=== PATIENT | male | born 1985 | race Caucasian/White ===

== ENCOUNTER 2018-02-28 09:13 | Inpatient (IN) | payer MEDICAID ==
[~2018-02-28] VITALS: Ht 177.8 cm; Wt 63.1 kg
[2018-02-28] MEDS ORDERED: SODIUM CHLORIDE FLUSH 10ML SYR IVF ONE (10:00)
[2018-02-28] MEDS ORDERED: SODIUM CHLORIDE 0.9% 1,000ML IVBOLUS ONE (10:00)
[2018-02-28 10:34] LABS: BASOPHILS # (AUTO) 0.02 x10^3/uL (0-0.1); BASOPHILS % (AUTO) 0 % (0-1); EOSINOPHILS # (AUTO) 0.02 x10^3/uL (0-0.4); EOSINOPHILS % (AUTO) 0 % (1-7); LYMPHOCYTES # (AUTO) 1.37 x10^3/uL (1-3.4); LYMPHOCYTES % (AUTO) 19 % (22-44); MD NO; MEAN CORPUSCULAR HEMOGLOBIN 29.3 pg (27.5-34.5); MEAN CORPUSCULAR HGB CONC 33.1 g/dL (33.2-36.2); MEAN CORPUSCULAR VOLUME 88.7 fL (81-97); MEAN PLATELET VOLUME 5.9 fL (7.4-10.4); MONOCYTES # (AUTO) 0.67 x10^3/uL (0.2-0.8); MONOCYTES % (AUTO) 9 % (2-9); NEUTROPHILS # (AUTO) 5.12 x10^3/uL (1.8-6.8); NEUTROPHILS % (AUTO) 71 % (42-75); PLATELET COUNT 351 x10^3/uL (130-400); RED BLOOD COUNT 4.84 x10^6/uL (4.38-5.82); RED CELL DISTRIBUTION WIDTH 14.3 % (9.4-14.8)
[2018-02-28 10:47] LABS: ALANINE AMINOTRANSFERASE 22 U/L (12-78); ALBUMIN 2.7 g/dL (3.4-5.0); ANION GAP 13 mmol/L (5-15); CALCIUM 8.5 mg/dL (8.5-10.1); CHLORIDE 105 mmol/L (98-107); CREATININE 0.58 mg/dL (0.7-1.3)
[2018-02-28 10:50] LABS: ALKALINE PHOSPHATASE 83 U/L (45-117); BILIRUBIN,TOTAL 0.6 mg/dL (0.2-1.0); TOTAL PROTEIN 6.5 g/dL (6.4-8.2)
[2018-02-28 11:33] LABS: MICROSCOPIC NOT IND
[2018-02-28 11:34] LABS: CULTURE INDICATED? NO
[2018-02-28] MEDS ORDERED: OMNIPAQUE 350 MG/ML, 100ML BOTTLE ONE (12:19)
[2018-02-28] MEDS ORDERED: POTASSIUM CHLORIDE 10 MEQ in LACTATED RINGERS 1,000 ML IV ONE (12:43)
[2018-02-28] MEDS ORDERED: ONDANSETRON 2MG/ML, 2ML IVPush PRN (14:00)
[2018-02-28] MEDS ORDERED: ACETAMINOPHEN 325 MG TABLET PO PRN (14:00)
[2018-02-28] MEDS ORDERED: hydrALAzine 20 MG/ML, 1ML IVPush PRN (14:00)
[2018-02-28] MEDS ORDERED: ENALAPRILAT 1.25 MG/ML, 2ML IVPush PRN (14:00)
[2018-02-28] MEDS ORDERED: POLYETHYLENE GLYCOL 17 GM PACKET PO PRN (14:00)
[2018-02-28] MEDS ORDERED: BISACODYL 10 MG SUPP PR PRN (14:00)
[2018-02-28] MEDS ORDERED: DOCUSATE 100 MG CAPSULE PO PRN (14:00)
[2018-02-28] MEDS ORDERED: HYDROcodone/APAP 5/325 TABLET PO PRN (14:00)
[2018-02-28 14:18] VITALS: BP 111/79
[2018-02-28] MEDS: D5%-LR+KCL 20MEQ 1,000 ML IV SCH (15:29)
[2018-02-28] MEDS: morphine SULFATE 10 MG/ML, 1ML IVPush PRN ×3 (15:30→21:22)
[2018-02-28] MEDS ORDERED: ONDANSETRON ODT 4 MG ONE (18:22)
[2018-02-28] MEDS: ONDANSETRON ODT 4 MG PO PRN (18:26)
[2018-02-28 19:33] VITALS: BP 103/71
[2018-02-28] MEDS: NICOTINE 14MG/24 HR PATCH.TD24 TD SCH (21:22)
[2018-03-01] MEDS: D5%-LR+KCL 20MEQ 1,000 ML IV SCH ×3 (00:34→23:14)
[2018-03-01] MEDS: morphine SULFATE 10 MG/ML, 1ML IVPush PRN ×7 (00:34→21:20)
[2018-03-01] MEDS: ONDANSETRON ODT 4 MG PO PRN ×3 (00:34→16:34)
[2018-03-01 01:08] VITALS: BP 96/60
[2018-03-01 05:20] LABS: BASOPHILS # (AUTO) 0.02 x10^3/uL (0-0.1); BASOPHILS % (AUTO) 0 % (0-1); EOSINOPHILS # (AUTO) 0.07 x10^3/uL (0-0.4); EOSINOPHILS % (AUTO) 1 % (1-7); LYMPHOCYTES # (AUTO) 1.74 x10^3/uL (1-3.4); LYMPHOCYTES % (AUTO) 24 % (22-44); MD NO; MEAN CORPUSCULAR HEMOGLOBIN 30.2 pg (27.5-34.5); MEAN CORPUSCULAR HGB CONC 33.6 g/dL (33.2-36.2); MEAN CORPUSCULAR VOLUME 89.8 fL (81-97); MEAN PLATELET VOLUME 5.8 fL (7.4-10.4); MONOCYTES # (AUTO) 0.66 x10^3/uL (0.2-0.8); MONOCYTES % (AUTO) 9 % (2-9); NEUTROPHILS # (AUTO) 4.66 x10^3/uL (1.8-6.8); NEUTROPHILS % (AUTO) 65 % (42-75); PLATELET COUNT 355 x10^3/uL (130-400); RED BLOOD COUNT 4.23 x10^6/uL (4.38-5.82); RED CELL DISTRIBUTION WIDTH 14.3 % (9.4-14.8)
[2018-03-01 05:42] LABS: CHLORIDE 109 mmol/L (98-107)
[2018-03-01 05:51] LABS: ALANINE AMINOTRANSFERASE 18 U/L (12-78); ALBUMIN 2.2 g/dL (3.4-5.0); ALKALINE PHOSPHATASE 70 U/L (45-117); ANION GAP 7 mmol/L (5-15); BILIRUBIN,TOTAL 0.5 mg/dL (0.2-1.0); CALCIUM 8.1 mg/dL (8.5-10.1); CREATININE 0.55 mg/dL (0.7-1.3); TOTAL PROTEIN 5.3 g/dL (6.4-8.2)
[2018-03-01 07:11] VITALS: BP 94/59
[2018-03-01 13:55] VITALS: BP 98/74
[2018-03-01] MEDS ORDERED: OMNIPAQUE 350 MG/ML, 150 ML BOTTLE ONE (14:41)
[2018-03-01 18:48] VITALS: BP 99/67
[2018-03-01] MEDS: NICOTINE 14MG/24 HR PATCH.TD24 TD SCH (21:21)
[2018-03-02] MEDS: morphine SULFATE 10 MG/ML, 1ML IVPush PRN ×8 (00:13→22:29)
[2018-03-02 03:09] VITALS: BP 98/66
[2018-03-02] MEDS: D5%-LR+KCL 20MEQ 1,000 ML IV SCH ×3 (06:41→23:26)
[2018-03-02 07:08] VITALS: BP 89/66
[2018-03-02] MEDS: ONDANSETRON ODT 4 MG PO PRN (12:54)
[2018-03-02 13:40] VITALS: BP 97/64
[2018-03-02] MEDS ORDERED: D5%-LR+KCL 20MEQ 1,000 ML IV SCH ×2 (14:00)
[2018-03-02 19:22] VITALS: BP 97/61
[2018-03-02] MEDS: NICOTINE 14MG/24 HR PATCH.TD24 TD SCH (21:00)
[2018-03-03] MEDS: morphine SULFATE 10 MG/ML, 1ML IVPush PRN ×8 (01:31→23:06)
[2018-03-03 02:15] VITALS: BP 98/50
[2018-03-03 06:04] LABS: BASOPHILS # (AUTO) 0.02 x10^3/uL (0-0.1); BASOPHILS % (AUTO) 0 % (0-1); EOSINOPHILS % (AUTO) 1 % (1-7); LYMPHOCYTES # (AUTO) 2.23 x10^3/uL (1-3.4); LYMPHOCYTES % (AUTO) 29 % (22-44); MD NO; MEAN CORPUSCULAR HEMOGLOBIN 29.5 pg (27.5-34.5); MEAN CORPUSCULAR HGB CONC 32.8 g/dL (33.2-36.2); MEAN CORPUSCULAR VOLUME 89.9 fL (81-97); MONOCYTES # (AUTO) 0.81 x10^3/uL (0.2-0.8); MONOCYTES % (AUTO) 10 % (2-9); NEUTROPHILS # (AUTO) 4.64 x10^3/uL (1.8-6.8); NEUTROPHILS % (AUTO) 60 % (42-75); PLATELET COUNT 336 x10^3/uL (130-400); RED BLOOD COUNT 4.32 x10^6/uL (4.38-5.82); RED CELL DISTRIBUTION WIDTH 14.7 % (9.4-14.8)
[2018-03-03 06:10] LABS: ALBUMIN 2.3 g/dL (3.4-5.0); ANION GAP 6 mmol/L (5-15); CALCIUM 7.9 mg/dL (8.5-10.1); CHLORIDE 110 mmol/L (98-107)
[2018-03-03 06:14] LABS: ALANINE AMINOTRANSFERASE 24 U/L (12-78); ALKALINE PHOSPHATASE 77 U/L (45-117); BILIRUBIN,TOTAL 0.6 mg/dL (0.2-1.0); CREATININE 0.63 mg/dL (0.7-1.3); TOTAL PROTEIN 5.5 g/dL (6.4-8.2)
[2018-03-03 08:00] VITALS: BP 85/53
[2018-03-03] MEDS ORDERED: BENZOCAINE 20% SPRAY 0.5ML TP ONE ×2 (08:00→09:00)
[2018-03-03] MEDS ORDERED: LORazepam 2 MG/ML, 1ML IV PRN (08:00)
[2018-03-03] MEDS: D5%-LR+KCL 20MEQ 1,000 ML IV SCH ×3 (08:20→17:00)
[2018-03-03] MEDS: NICOTINE 14MG/24 HR PATCH.TD24 TD SCH (08:28)
[2018-03-03] MEDS ORDERED: TPN PER PHARMACY MC SCH (09:00)
[2018-03-03] MEDS ORDERED: FILTER, DISP 1.2 MICRON FOR TPN/PVN IV PRN (09:00)
[2018-03-03] MEDS: ONDANSETRON ODT 4 MG PO PRN ×2 (11:30→20:01)
[2018-03-03 13:11] VITALS: BP 100/67
[2018-03-03] MEDS ORDERED: LIDOCAINE-MPF 1%, 5ML ONE (13:30)
[2018-03-03] MEDS: D5%-LACTATED RINGERS 1,000 ML IV SCH (16:46)
[2018-03-03] MEDS ORDERED: DEXTROSE 50%, 50ML SYRINGE IVPush PRN (17:00)
[2018-03-03] MEDS ORDERED: FAT EMULSIONS IV SCH (17:00)
[2018-03-03] MEDS ORDERED: DEXTROSE 70% IV SCH (17:00)
[2018-03-03] MEDS ORDERED: AMINO ACID 10% IV SCH (17:00)
[2018-03-03] MEDS ORDERED: [UNRECOGNIZED DRUG - OTHER] IV SCH (17:00)
[2018-03-03] MEDS ORDERED: DEXTROSE 10% 500 ML IV PRN (17:00)
[2018-03-03 19:34] VITALS: BP 106/70
[2018-03-03] MEDS: INSULIN REGULAR LOW DOSE Q6H X 48HRS SQ-INSULIN SCH (21:58)
[2018-03-04] MEDS: morphine SULFATE 10 MG/ML, 1ML IVPush PRN ×5 (02:37→17:11)
[2018-03-04] MEDS: ONDANSETRON ODT 4 MG PO PRN ×2 (02:37→09:39)
[2018-03-04 02:44] VITALS: BP 116/54
[2018-03-04] MEDS: INSULIN REGULAR LOW DOSE Q6H X 48HRS SQ-INSULIN SCH ×4 (03:16→22:30)
[2018-03-04] MEDS: D5%-LACTATED RINGERS 1,000 ML IV SCH ×2 (03:20→15:59)
[2018-03-04 03:27] LABS: BASOPHILS # (AUTO) 0.02 x10^3/uL (0-0.1); BASOPHILS % (AUTO) 0 % (0-1); EOSINOPHILS # (AUTO) 0.04 x10^3/uL (0-0.4); EOSINOPHILS % (AUTO) 0 % (1-7); LYMPHOCYTES # (AUTO) 1.23 x10^3/uL (1-3.4); LYMPHOCYTES % (AUTO) 10 % (22-44); MD NO; MEAN CORPUSCULAR HEMOGLOBIN 29.8 pg (27.5-34.5); MEAN CORPUSCULAR HGB CONC 32.7 g/dL (33.2-36.2); MEAN CORPUSCULAR VOLUME 91.2 fL (81-97); MONOCYTES # (AUTO) 0.08 x10^3/uL (0.2-0.8); MONOCYTES % (AUTO) 1 % (2-9); NEUTROPHILS % (AUTO) 89 % (42-75); PLATELET COUNT 361 x10^3/uL (130-400); RED CELL DISTRIBUTION WIDTH 14.6 % (9.4-14.8)
[2018-03-04 03:39] LABS: ANION GAP 6 mmol/L (5-15); CALCIUM 8.5 mg/dL (8.5-10.1); CHLORIDE 108 mmol/L (98-107); CREATININE 0.75 mg/dL (0.7-1.3); TRIGLYCERIDES 95 mg/dL (50-200)
[2018-03-04 03:43] LABS: PREALBUMIN 10.2 mg/dL (20.0-40.0)
[2018-03-04 07:05] VITALS: BP 104/74
[2018-03-04 15:22] VITALS: BP 104/75
[2018-03-04] MEDS ORDERED: FAT EMULSIONS IV SCH (17:00)
[2018-03-04] MEDS ORDERED: DEXTROSE 70% IV SCH (17:00)
[2018-03-04] MEDS ORDERED: [UNRECOGNIZED DRUG - OTHER] IV SCH (17:00)
[2018-03-04] MEDS ORDERED: FILTER, DISP 1.2 MICRON FOR TPN/PVN IV PRN (17:00)
[2018-03-04] MEDS ORDERED: AMINO ACID 10% IV SCH (17:00)
[2018-03-04] MEDS ORDERED: FENTANYL PF 100 MCG/2ML ONE ×2 (18:12→21:02)
[2018-03-04] MEDS ORDERED: MIDAZOLAM 1 MG/ML, 2ML ONE (18:12)
[2018-03-04] MEDS ORDERED: SUCCINYLCHOLINE 20 MG/ML, 10ML ONE (18:40)
[2018-03-04] MEDS ORDERED: CEFOTETAN 1 GM ONE (18:40)
[2018-03-04] MEDS ORDERED: PROPOFOL 10 MG/ML, 20ML ONE (18:40)
[2018-03-04] MEDS ORDERED: ROCURONIUM 10 MG/ML,10ML ONE (18:40)
[2018-03-04] MEDS ORDERED: DEXAMETHASONE 4 MG/ML, 1ML ONE (18:40)
[2018-03-04] MEDS ORDERED: ACETAMINOPHEN 325 MG TABLET PO PRN (20:00)
[2018-03-04] MEDS ORDERED: hydrALAzine 20 MG/ML, 1ML IV PRN (20:00)
[2018-03-04] MEDS ORDERED: ONDANSETRON 2MG/ML, 2ML IVPush PRN (20:00)
[2018-03-04] MEDS ORDERED: OXYcodone 5 MG/5 ML ORAL.SOL UDC PO PRN (20:00)
[2018-03-04] MEDS ORDERED: METOCLOPRAMIDE 5 MG/ML, 2ML IV PRN (20:00)
[2018-03-04] MEDS ORDERED: LABETALOL 5MG/ML, 20ML IV PRN (20:00)
[2018-03-04] MEDS ORDERED: HYDROmorphone 2 MG/ML, 1ML ONE ×2 (20:53→21:41)
[2018-03-04] MEDS: HYDROmorphone 1 MG/ML, 1ML IV PRN ×8 (20:56→22:21)
[2018-03-04] MEDS: NICOTINE 14MG/24 HR PATCH.TD24 TD SCH (21:00)
[2018-03-04] MEDS: FENTANYL PF 100 MCG/2ML IV PRN ×2 (21:04→21:28)
[2018-03-04] MEDS ORDERED: LORazepam 2 MG/ML, 1ML ONE (22:03)
[2018-03-04] MEDS ORDERED: PROMETHAZINE 25 MG/ML, 1ML ONE (22:11)
[2018-03-04] MEDS ORDERED: PROMETHAZINE 25 MG/ML, 1ML IV PRN (22:30)
[2018-03-04] MEDS ORDERED: PROMETHAZINE 25 MG SUPP PR PRN (22:30)
[2018-03-04] MEDS ORDERED: INSULIN SINGLE DOSE, ER SQ-INSULIN ONE (22:32)
[2018-03-05] VITALS (7 sets, daily range): BP systolic 90–121; BP diastolic 60–86
[2018-03-05] MEDS: PIPERACILLIN/TAZO/PMX 3.375GM 50 ML IV SCH ×4 (00:39→19:58)
[2018-03-05] MEDS: HYDROmorphone 1 MG/ML, 1ML IV PRN ×5 (00:39→17:54)
[2018-03-05] MEDS ORDERED: ONDANSETRON ODT 4 MG PO PRN (01:00)
[2018-03-05] MEDS: INSULIN REGULAR LOW DOSE Q6H X 48HRS SQ-INSULIN SCH ×2 (03:00→10:11)
[2018-03-05] MEDS: D5%-LACTATED RINGERS 1,000 ML IV SCH (03:45)
[2018-03-05 05:37] LABS: MEAN CORPUSCULAR HEMOGLOBIN 29.7 pg (27.5-34.5); MEAN CORPUSCULAR VOLUME 89.9 fL (81-97); MEAN PLATELET VOLUME 6.2 fL (7.4-10.4); PLATELET COUNT 260 x10^3/uL (130-400); RED BLOOD COUNT 4.81 x10^6/uL (4.38-5.82); RED CELL DISTRIBUTION WIDTH 14.6 % (9.4-14.8)
[2018-03-05 06:01] LABS: MD YES
[2018-03-05 06:04] LABS: BAND#(MANUAL) 2.87 x10^3/uL; BANDS%(MANUAL) 33 % (0-7); LYMPH#(MANUAL) 1.31 x10^3/uL (1-3.4); LYMPHS% (MANUAL) 15 % (22-44); MONOS#(MANUAL) 0.17 x10^3/uL (0.3-2.7); MONOS% (MANUAL) 2 % (2-9); SEG#(MANUAL) 4.35 x10^3/uL (1.8-6.8); SEGS% (MANUAL) 50 % (42-75)
[2018-03-05 06:07] LABS: <PLATELET ESTIMATE> ADEQUATE; <RBC MORPHOLOGY> NORMAL; SMALL PLATELETS 1+
[2018-03-05 08:27] LABS: TROPONIN I < 0.015 ng/mL (0.000-0.045)
[2018-03-05] MEDS: HEPARIN 5,000 UNITS/ML, 1ML SQ SCH ×2 (10:03→17:54)
[2018-03-05 10:07] LABS: ALANINE AMINOTRANSFERASE 21 U/L (12-78); ALBUMIN 2.1 g/dL (3.4-5.0); ANION GAP 6 mmol/L (5-15); CALCIUM 7.6 mg/dL (8.5-10.1); CHLORIDE 107 mmol/L (98-107); CREATININE 0.68 mg/dL (0.7-1.3)
[2018-03-05 10:09] LABS: ALKALINE PHOSPHATASE 77 U/L (45-117); BILIRUBIN,TOTAL 0.7 mg/dL (0.2-1.0); TOTAL PROTEIN 5.3 g/dL (6.4-8.2)
[2018-03-05] MEDS ORDERED: HYDROmorphone 2 MG/ML, 1ML ONE ×2 (11:04→17:48)
[2018-03-05 13:15] LABS: TROPONIN I < 0.015 ng/mL (0.000-0.045)
[2018-03-05] MEDS: morphine SULFATE 10 MG/ML, 1ML IVPush PRN (14:58)
[2018-03-05] MEDS: INSULIN REGULAR, HUMAN 100 UNITS/ML, 3ML HIGH DOSE SS SQ-INSULIN SCH ×2 (16:00→21:18)
[2018-03-05] MEDS ORDERED: [UNRECOGNIZED DRUG - OTHER] IV SCH (17:00)
[2018-03-05] MEDS ORDERED: AMINO ACID 10% IV SCH (17:00)
[2018-03-05] MEDS ORDERED: FILTER, DISP 1.2 MICRON FOR TPN/PVN IV PRN (17:00)
[2018-03-05] MEDS ORDERED: DEXTROSE 70% IV SCH (17:00)
[2018-03-05] MEDS ORDERED: SODIUM CHLORIDE 0.9% 1,000 ML IV SCH (17:00)
[2018-03-05] MEDS ORDERED: FAT EMULSIONS IV SCH (17:00)
[2018-03-05] MEDS: SODIUM CHLORIDE 0.9% 1,000 ML IV SCH (17:54)
[2018-03-05] MEDS: NICOTINE 14MG/24 HR PATCH.TD24 TD SCH (19:59)
[2018-03-05] MEDS: HYDROmorphone 2 MG/ML, 1ML IV PRN (21:15)
[2018-03-06 01:11] VITALS: BP 107/68
[2018-03-06] MEDS: HYDROmorphone 2 MG/ML, 1ML IV PRN ×4 (01:49→22:21)
[2018-03-06] MEDS: HEPARIN 5,000 UNITS/ML, 1ML SQ SCH ×3 (01:49→19:26)
[2018-03-06] MEDS: PIPERACILLIN/TAZO/PMX 3.375GM 50 ML IV SCH ×4 (01:49→22:11)
[2018-03-06] MEDS: INSULIN REGULAR, HUMAN 100 UNITS/ML, 3ML HIGH DOSE SS SQ-INSULIN SCH (04:00)
[2018-03-06] MEDS: SODIUM CHLORIDE 0.9% 1,000 ML IV SCH ×3 (05:04→22:21)
[2018-03-06 05:41] LABS: MEAN CORPUSCULAR HEMOGLOBIN 29.5 pg (27.5-34.5); MEAN CORPUSCULAR HGB CONC 32.5 g/dL (33.2-36.2); MEAN CORPUSCULAR VOLUME 90.8 fL (81-97); PLATELET COUNT 172 x10^3/uL (130-400); RED BLOOD COUNT 3.83 x10^6/uL (4.38-5.82); RED CELL DISTRIBUTION WIDTH 14.1 % (9.4-14.8)
[2018-03-06 05:49] LABS: CHLORIDE 106 mmol/L (98-107)
[2018-03-06 05:59] LABS: ALANINE AMINOTRANSFERASE 16 U/L (12-78); ALBUMIN 1.8 g/dL (3.4-5.0); ALKALINE PHOSPHATASE 76 U/L (45-117); ANION GAP 4 mmol/L (5-15); BILIRUBIN,TOTAL 0.8 mg/dL (0.2-1.0); CALCIUM 7.8 mg/dL (8.5-10.1); CREATININE 0.58 mg/dL (0.7-1.3); TOTAL PROTEIN 4.9 g/dL (6.4-8.2)
[2018-03-06 06:35] LABS: MD YES
[2018-03-06 06:37] LABS: BAND#(MANUAL) 0.98 x10^3/uL; BANDS%(MANUAL) 8 % (0-7); LYMPH#(MANUAL) 2.07 x10^3/uL (1-3.4); LYMPHS% (MANUAL) 17 % (22-44); MONOS#(MANUAL) 0.12 x10^3/uL (0.3-2.7); MONOS% (MANUAL) 1 % (2-9); SEG#(MANUAL) 9.03 x10^3/uL (1.8-6.8); SEGS% (MANUAL) 74 % (42-75)
[2018-03-06 06:38] LABS: <PLATELET ESTIMATE> ADEQUATE; <RBC MORPHOLOGY> NORMAL
[2018-03-06 06:39] LABS: <PLT MORPHOLOGY> NORMAL PLT MORPH
[2018-03-06 06:59] LABS: BASOPHILS # (AUTO) 0.01 x10^3/uL (0-0.1); BASOPHILS % (AUTO) 0 % (0-1); EOSINOPHILS # (AUTO) 0.05 x10^3/uL (0-0.4); EOSINOPHILS % (AUTO) 0 % (1-7); LYMPHOCYTES # (AUTO) 1.06 x10^3/uL (1-3.4); LYMPHOCYTES % (AUTO) 9 % (22-44); MONOCYTES % (AUTO) 3 % (2-9); NEUTROPHILS # (AUTO) 10.69 x10^3/uL (1.8-6.8); NEUTROPHILS % (AUTO) 88 % (42-75)
[2018-03-06 08:30] VITALS: BP 101/66
[2018-03-06] MEDS ORDERED: INSULIN REGULAR LOW DOSE QDAY SQ-INSULIN SCH (09:00)
[2018-03-06 14:14] VITALS: BP 101/63
[2018-03-06] MEDS ORDERED: DEXTROSE 70% IV SCH (17:00)
[2018-03-06] MEDS ORDERED: AMINO ACID 10% IV SCH (17:00)
[2018-03-06] MEDS ORDERED: FAT EMULSIONS IV SCH (17:00)
[2018-03-06] MEDS ORDERED: FILTER, DISP 1.2 MICRON FOR TPN/PVN IV PRN (17:00)
[2018-03-06] MEDS ORDERED: [UNRECOGNIZED DRUG - OTHER] IV SCH (17:00)
[2018-03-06 20:02] VITALS: BP 100/64
[2018-03-06] MEDS: NICOTINE 14MG/24 HR PATCH.TD24 TD SCH (20:13)
[2018-03-07] MEDS: HYDROmorphone 2 MG/ML, 1ML IV PRN ×6 (03:29→21:56)
[2018-03-07] MEDS: PIPERACILLIN/TAZO/PMX 3.375GM 50 ML IV SCH ×4 (03:29→21:56)
[2018-03-07] MEDS: HEPARIN 5,000 UNITS/ML, 1ML SQ SCH ×3 (03:29→19:57)
[2018-03-07 03:31] VITALS: BP 107/67
[2018-03-07 05:16] LABS: ALBUMIN 1.6 g/dL (3.4-5.0); ANION GAP 5 mmol/L (5-15); CALCIUM 8.2 mg/dL (8.5-10.1); CHLORIDE 106 mmol/L (98-107)
[2018-03-07 05:20] LABS: ALANINE AMINOTRANSFERASE 14 U/L (12-78); ALKALINE PHOSPHATASE 83 U/L (45-117); BILIRUBIN,TOTAL 0.9 mg/dL (0.2-1.0); CREATININE 0.55 mg/dL (0.7-1.3); TOTAL PROTEIN 5.3 g/dL (6.4-8.2)
[2018-03-07 05:22] LABS: BASOPHILS # (AUTO) 0.01 x10^3/uL (0-0.1); BASOPHILS % (AUTO) 0 % (0-1); EOSINOPHILS # (AUTO) 0.06 x10^3/uL (0-0.4); EOSINOPHILS % (AUTO) 1 % (1-7); LYMPHOCYTES # (AUTO) 0.62 x10^3/uL (1-3.4); LYMPHOCYTES % (AUTO) 7 % (22-44); MD NO; MEAN CORPUSCULAR HGB CONC 32.9 g/dL (33.2-36.2); MEAN CORPUSCULAR VOLUME 91.2 fL (81-97); MEAN PLATELET VOLUME 6.3 fL (7.4-10.4); MONOCYTES % (AUTO) 2 % (2-9); NEUTROPHILS # (AUTO) 8.45 x10^3/uL (1.8-6.8); NEUTROPHILS % (AUTO) 90 % (42-75); PLATELET COUNT 188 x10^3/uL (130-400); RED BLOOD COUNT 3.45 x10^6/uL (4.38-5.82); RED CELL DISTRIBUTION WIDTH 14.7 % (9.4-14.8)
[2018-03-07 05:25] LABS: HEMOGLOBIN A1C 4.7 % (4.2-6.3)
[2018-03-07] MEDS: INSULIN REGULAR, HUMAN 100 UNITS/ML, 3ML HIGH DOSE SS SQ-INSULIN SCH (08:02)
[2018-03-07 08:30] VITALS: BP 132/78
[2018-03-07] MEDS: SODIUM CHLORIDE 0.9% 1,000 ML IV SCH ×2 (11:25→19:46)
[2018-03-07 14:30] VITALS: BP 102/60
[2018-03-07] MEDS ORDERED: [UNRECOGNIZED DRUG - OTHER] IV SCH (17:00)
[2018-03-07] MEDS ORDERED: DEXTROSE 70% IV SCH (17:00)
[2018-03-07] MEDS ORDERED: FAT EMULSIONS IV SCH (17:00)
[2018-03-07] MEDS ORDERED: AMINO ACID 10% IV SCH (17:00)
[2018-03-07] MEDS: NICOTINE 14MG/24 HR PATCH.TD24 TD SCH (19:14)
[2018-03-07] MEDS: FILTER, DISP 1.2 MICRON FOR TPN/PVN IV PRN (19:50)
[2018-03-07 19:58] VITALS: BP 100/65
[2018-03-08] MEDS: HYDROmorphone 2 MG/ML, 1ML IV PRN ×10 (02:53→22:16)
[2018-03-08 02:54] VITALS: BP 100/63
[2018-03-08] MEDS: PIPERACILLIN/TAZO/PMX 3.375GM 50 ML IV SCH ×3 (04:07→17:30)
[2018-03-08] MEDS: HEPARIN 5,000 UNITS/ML, 1ML SQ SCH ×3 (04:07→20:21)
[2018-03-08] MEDS: SODIUM CHLORIDE 0.9% 1,000 ML IV SCH ×2 (04:08→13:00)
[2018-03-08 05:27] LABS: BASOPHILS # (AUTO) 0.04 x10^3/uL (0-0.1); BASOPHILS % (AUTO) 0 % (0-1); EOSINOPHILS # (AUTO) 0.06 x10^3/uL (0-0.4); EOSINOPHILS % (AUTO) 1 % (1-7); LYMPHOCYTES % (AUTO) 8 % (22-44); MD NO; MEAN CORPUSCULAR HEMOGLOBIN 29.9 pg (27.5-34.5); MEAN CORPUSCULAR HGB CONC 33.2 g/dL (33.2-36.2); MEAN CORPUSCULAR VOLUME 90.2 fL (81-97); MEAN PLATELET VOLUME 6.4 fL (7.4-10.4); MONOCYTES # (AUTO) 0.33 x10^3/uL (0.2-0.8); MONOCYTES % (AUTO) 4 % (2-9); NEUTROPHILS # (AUTO) 8.04 x10^3/uL (1.8-6.8); NEUTROPHILS % (AUTO) 88 % (42-75); PLATELET COUNT 201 x10^3/uL (130-400); RED BLOOD COUNT 3.19 x10^6/uL (4.38-5.82); RED CELL DISTRIBUTION WIDTH 14.3 % (9.4-14.8)
[2018-03-08 05:34] LABS: CHLORIDE 108 mmol/L (98-107)
[2018-03-08 05:49] LABS: ALANINE AMINOTRANSFERASE 15 U/L (12-78); ALBUMIN 1.6 g/dL (3.4-5.0); ALKALINE PHOSPHATASE 83 U/L (45-117); ANION GAP 5 mmol/L (5-15); BILIRUBIN,TOTAL 0.6 mg/dL (0.2-1.0); CALCIUM 7.8 mg/dL (8.5-10.1); CREATININE 0.39 mg/dL (0.7-1.3); TOTAL PROTEIN 5.4 g/dL (6.4-8.2)
[2018-03-08] MEDS: INSULIN REGULAR, HUMAN 100 UNITS/ML, 3ML HIGH DOSE SS SQ-INSULIN SCH (07:40)
[2018-03-08 09:28] VITALS: BP 99/63
[2018-03-08 14:18] VITALS: BP 103/62
[2018-03-08] MEDS: FILTER, DISP 1.2 MICRON FOR TPN/PVN IV PRN (17:00)
[2018-03-08] MEDS ORDERED: [UNRECOGNIZED DRUG - OTHER] IV SCH (17:00)
[2018-03-08] MEDS ORDERED: DEXTROSE 70% IV SCH (17:00)
[2018-03-08] MEDS ORDERED: FAT EMULSIONS IV SCH (17:00)
[2018-03-08] MEDS ORDERED: AMINO ACID 10% IV SCH (17:00)
[2018-03-08] MEDS: NICOTINE 14MG/24 HR PATCH.TD24 TD SCH (20:22)
[2018-03-08 20:28] VITALS: BP 104/65
[2018-03-09] MEDS: PIPERACILLIN/TAZO/PMX 3.375GM 50 ML IV SCH ×4 (00:07→19:02)
[2018-03-09] MEDS: SODIUM CHLORIDE 0.9% 1,000 ML IV SCH ×2 (00:07→07:20)
[2018-03-09] MEDS: HYDROmorphone 2 MG/ML, 1ML IV PRN ×10 (00:17→22:50)
[2018-03-09 00:40] VITALS: BP 108/70
[2018-03-09] MEDS: HEPARIN 5,000 UNITS/ML, 1ML SQ SCH ×3 (04:30→20:21)
[2018-03-09 05:25] LABS: CHLORIDE 105 mmol/L (98-107)
[2018-03-09 05:40] LABS: ALANINE AMINOTRANSFERASE 16 U/L (12-78); ALBUMIN 1.5 g/dL (3.4-5.0); ALKALINE PHOSPHATASE 84 U/L (45-117); ANION GAP 6 mmol/L (5-15); BILIRUBIN,TOTAL 0.7 mg/dL (0.2-1.0); CALCIUM 8.1 mg/dL (8.5-10.1); CREATININE 0.37 mg/dL (0.7-1.3); TOTAL PROTEIN 5.4 g/dL (6.4-8.2)
[2018-03-09 05:48] LABS: BASOPHILS # (AUTO) 0.02 x10^3/uL (0-0.1); BASOPHILS % (AUTO) 0 % (0-1); EOSINOPHILS # (AUTO) 0.08 x10^3/uL (0-0.4); EOSINOPHILS % (AUTO) 1 % (1-7); LYMPHOCYTES # (AUTO) 1.09 x10^3/uL (1-3.4); LYMPHOCYTES % (AUTO) 14 % (22-44); MD NO; MEAN CORPUSCULAR HEMOGLOBIN 30.1 pg (27.5-34.5); MEAN CORPUSCULAR HGB CONC 33.4 g/dL (33.2-36.2); MEAN CORPUSCULAR VOLUME 90.3 fL (81-97); MEAN PLATELET VOLUME 6.5 fL (7.4-10.4); MONOCYTES % (AUTO) 8 % (2-9); NEUTROPHILS # (AUTO) 5.89 x10^3/uL (1.8-6.8); NEUTROPHILS % (AUTO) 77 % (42-75); PLATELET COUNT 209 x10^3/uL (130-400); RED BLOOD COUNT 3.04 x10^6/uL (4.38-5.82); RED CELL DISTRIBUTION WIDTH 14.3 % (9.4-14.8)
[2018-03-09 07:20] VITALS: BP 98/67
[2018-03-09] MEDS: INSULIN REGULAR, HUMAN 100 UNITS/ML, 3ML HIGH DOSE SS SQ-INSULIN SCH (09:00)
[2018-03-09 12:31] VITALS: BP 136/97
[2018-03-09] MEDS: NICOTINE 14MG/24 HR PATCH.TD24 TD SCH (13:03)
[2018-03-09] MEDS ORDERED: [UNRECOGNIZED DRUG - OTHER] IV SCH (17:00)
[2018-03-09] MEDS ORDERED: DEXTROSE 70% IV SCH (17:00)
[2018-03-09] MEDS ORDERED: AMINO ACID 10% IV SCH (17:00)
[2018-03-09] MEDS ORDERED: FAT EMULSIONS IV SCH (17:00)
[2018-03-09] MEDS: FILTER, DISP 1.2 MICRON FOR TPN/PVN IV PRN (17:34)
[2018-03-09 20:00] VITALS: BP 92/61
[2018-03-10] MEDS: PIPERACILLIN/TAZO/PMX 3.375GM 50 ML IV SCH ×4 (01:34→20:04)
[2018-03-10 01:53] VITALS: BP 101/68
[2018-03-10] MEDS: HEPARIN 5,000 UNITS/ML, 1ML SQ SCH ×3 (04:28→20:05)
[2018-03-10] MEDS: HYDROmorphone 2 MG/ML, 1ML IV PRN ×7 (04:28→22:12)
[2018-03-10 05:52] LABS: ALBUMIN 1.7 g/dL (3.4-5.0); ANION GAP 7 mmol/L (5-15); CALCIUM 8.2 mg/dL (8.5-10.1); CHLORIDE 105 mmol/L (98-107)
[2018-03-10 05:53] LABS: CREATININE 0.34 mg/dL (0.7-1.3)
[2018-03-10 06:04] LABS: BASOPHILS # (AUTO) 0.03 x10^3/uL (0-0.1); BASOPHILS % (AUTO) 1 % (0-1); EOSINOPHILS # (AUTO) 0.14 x10^3/uL (0-0.4); EOSINOPHILS % (AUTO) 2 % (1-7); LYMPHOCYTES # (AUTO) 0.92 x10^3/uL (1-3.4); LYMPHOCYTES % (AUTO) 13 % (22-44); MD NO; MEAN CORPUSCULAR HEMOGLOBIN 30.3 pg (27.5-34.5); MEAN CORPUSCULAR HGB CONC 33.3 g/dL (33.2-36.2); MEAN CORPUSCULAR VOLUME 90.9 fL (81-97); MEAN PLATELET VOLUME 6.8 fL (7.4-10.4); MONOCYTES # (AUTO) 0.62 x10^3/uL (0.2-0.8); MONOCYTES % (AUTO) 9 % (2-9); NEUTROPHILS # (AUTO) 5.11 x10^3/uL (1.8-6.8); NEUTROPHILS % (AUTO) 75 % (42-75); PLATELET COUNT 296 x10^3/uL (130-400); RED BLOOD COUNT 3.38 x10^6/uL (4.38-5.82); RED CELL DISTRIBUTION WIDTH 14.1 % (9.4-14.8)
[2018-03-10] MEDS: INSULIN REGULAR, HUMAN 100 UNITS/ML, 3ML HIGH DOSE SS SQ-INSULIN SCH (08:28)
[2018-03-10 09:02] VITALS: BP 96/59
[2018-03-10] MEDS: NICOTINE 14MG/24 HR PATCH.TD24 TD SCH (12:34)
[2018-03-10 14:06] VITALS: BP 106/66
[2018-03-10] MEDS ORDERED: AMINO ACID 10% IV SCH (17:00)
[2018-03-10] MEDS ORDERED: FAT EMULSIONS IV SCH (17:00)
[2018-03-10] MEDS ORDERED: [UNRECOGNIZED DRUG - OTHER] IV SCH (17:00)
[2018-03-10] MEDS ORDERED: DEXTROSE 70% IV SCH (17:00)
[2018-03-10 18:30] LABS: FREE T4 (FREE THYROXINE) 0.81 ng/dL (0.76-1.46); THYROID STIMULATING HORMONE 4.32 mIU/L (0.358-3.740)
[2018-03-10 20:00] VITALS: BP 108/74
[2018-03-10] MEDS ORDERED: ONDANSETRON ODT 4 MG ONE (22:10)
[2018-03-11] MEDS: PIPERACILLIN/TAZO/PMX 3.375GM 50 ML IV SCH ×4 (02:25→20:53)
[2018-03-11] MEDS: HYDROmorphone 2 MG/ML, 1ML IV PRN ×7 (02:25→20:53)
[2018-03-11 02:35] VITALS: BP 105/64
[2018-03-11] MEDS: HEPARIN 5,000 UNITS/ML, 1ML SQ SCH ×3 (05:14→20:52)
[2018-03-11 06:55] LABS: ANION GAP 5 mmol/L (5-15); CALCIUM 7.9 mg/dL (8.5-10.1); CHLORIDE 103 mmol/L (98-107)
[2018-03-11 07:00] LABS: CREATININE 0.33 mg/dL (0.7-1.3); PREALBUMIN 5.9 mg/dL (20.0-40.0)
[2018-03-11] MEDS: INSULIN REGULAR, HUMAN 100 UNITS/ML, 3ML HIGH DOSE SS SQ-INSULIN SCH (08:08)
[2018-03-11 08:30] VITALS: BP 93/59
[2018-03-11] MEDS: NICOTINE 14MG/24 HR PATCH.TD24 TD SCH (13:00)
[2018-03-11] MEDS ORDERED: [UNRECOGNIZED DRUG - OTHER] IV SCH (17:00)
[2018-03-11] MEDS ORDERED: FILTER, DISP 1.2 MICRON FOR TPN/PVN IV PRN (17:00)
[2018-03-11] MEDS ORDERED: AMINO ACID 10% IV SCH (17:00)
[2018-03-11] MEDS ORDERED: FAT EMULSIONS IV SCH (17:00)
[2018-03-11] MEDS ORDERED: DEXTROSE 70% IV SCH (17:00)
[2018-03-11 20:00] VITALS: BP 94/56
[2018-03-12] VITALS (7 sets, daily range): BP systolic 85–102; BP diastolic 47–65
[2018-03-12] MEDS: PIPERACILLIN/TAZO/PMX 3.375GM 50 ML IV SCH ×4 (03:23→20:19)
[2018-03-12] MEDS: HYDROmorphone 2 MG/ML, 1ML IV PRN ×9 (03:24→22:43)
[2018-03-12] MEDS: HEPARIN 5,000 UNITS/ML, 1ML SQ SCH ×3 (04:40→20:20)
[2018-03-12 06:29] LABS: ANION GAP 7 mmol/L (5-15); CALCIUM 8.5 mg/dL (8.5-10.1); CHLORIDE 107 mmol/L (98-107); CREATININE 0.44 mg/dL (0.7-1.3)
[2018-03-12] MEDS: INSULIN REGULAR, HUMAN 100 UNITS/ML, 3ML HIGH DOSE SS SQ-INSULIN SCH (08:04)
[2018-03-12] MEDS: NICOTINE 14MG/24 HR PATCH.TD24 TD SCH ×2 (13:00→15:04)
[2018-03-12] MEDS ORDERED: DEXTROSE 70% IV SCH (17:00)
[2018-03-12] MEDS ORDERED: FAT EMULSIONS IV SCH (17:00)
[2018-03-12] MEDS ORDERED: FILTER, DISP 1.2 MICRON FOR TPN/PVN IV PRN (17:00)
[2018-03-12] MEDS ORDERED: AMINO ACID 10% IV SCH (17:00)
[2018-03-12] MEDS ORDERED: [UNRECOGNIZED DRUG - OTHER] IV SCH (17:00)
[2018-03-13] MEDS: HYDROmorphone 2 MG/ML, 1ML IV PRN ×5 (00:50→21:18)
[2018-03-13] MEDS: PIPERACILLIN/TAZO/PMX 3.375GM 50 ML IV SCH ×4 (03:05→21:11)
[2018-03-13 03:11] VITALS: BP 86/53
[2018-03-13] MEDS: HEPARIN 5,000 UNITS/ML, 1ML SQ SCH ×3 (05:14→21:13)
[2018-03-13 09:41] VITALS: BP 115/56
[2018-03-13] MEDS: INSULIN REGULAR, HUMAN 100 UNITS/ML, 3ML HIGH DOSE SS SQ-INSULIN SCH (09:42)
[2018-03-13] MEDS: NICOTINE 14MG/24 HR PATCH.TD24 TD SCH (13:16)
[2018-03-13 15:01] VITALS: BP 89/53
[2018-03-13] MEDS: FILTER, DISP 1.2 MICRON FOR TPN/PVN IV PRN (16:48)
[2018-03-13] MEDS ORDERED: AMINO ACID 10% IV SCH (17:00)
[2018-03-13] MEDS ORDERED: DEXTROSE 70% IV SCH (17:00)
[2018-03-13] MEDS ORDERED: FAT EMULSIONS IV SCH (17:00)
[2018-03-13] MEDS ORDERED: [UNRECOGNIZED DRUG - OTHER] IV SCH (17:00)
[2018-03-13 19:02] VITALS: BP 88/50
[2018-03-14] MEDS: HYDROmorphone 2 MG/ML, 1ML IV PRN ×5 (01:11→21:15)
[2018-03-14 02:16] VITALS: BP 96/57
[2018-03-14] MEDS: PIPERACILLIN/TAZO/PMX 3.375GM 50 ML IV SCH ×4 (02:53→22:57)
[2018-03-14 03:20] LABS: ANION GAP 3 mmol/L (5-15); CHLORIDE 114 mmol/L (98-107); CREATININE 0.51 mg/dL (0.7-1.3)
[2018-03-14] MEDS: HEPARIN 5,000 UNITS/ML, 1ML SQ SCH ×3 (05:19→21:08)
[2018-03-14] MEDS: DEXTROSE 10% 1,000 ML IV SCH ×2 (06:16→12:56)
[2018-03-14] MEDS: INSULIN REGULAR, HUMAN 100 UNITS/ML, 3ML HIGH DOSE SS SQ-INSULIN SCH (09:00)
[2018-03-14 09:23] VITALS: BP 86/50
[2018-03-14] MEDS: NICOTINE 14MG/24 HR PATCH.TD24 TD SCH (12:55)
[2018-03-14 14:24] VITALS: BP 90/52
[2018-03-14 16:56] VITALS: BP 88/56
[2018-03-14] MEDS: FILTER, DISP 1.2 MICRON FOR TPN/PVN IV PRN (16:57)
[2018-03-14] MEDS ORDERED: AMINO ACID 10% IV SCH ×2 (17:00)
[2018-03-14] MEDS ORDERED: INSULIN REGULAR HIGH DOSE QDAY SQ-INSULIN ONE (17:00)
[2018-03-14] MEDS ORDERED: FAT EMULSIONS IV SCH ×2 (17:00)
[2018-03-14] MEDS ORDERED: DEXTROSE 70% IV SCH ×2 (17:00)
[2018-03-14] MEDS ORDERED: [UNRECOGNIZED DRUG - OTHER] IV SCH ×2 (17:00)
[2018-03-14 20:24] VITALS: BP 92/49
[2018-03-15] MEDS: HYDROmorphone 2 MG/ML, 1ML IV PRN ×5 (01:22→22:51)
[2018-03-15 01:37] VITALS: BP 92/62
[2018-03-15] MEDS: PIPERACILLIN/TAZO/PMX 3.375GM 50 ML IV SCH ×4 (05:07→22:53)
[2018-03-15] MEDS: HEPARIN 5,000 UNITS/ML, 1ML SQ SCH ×3 (05:08→21:34)
[2018-03-15 06:01] LABS: ANION GAP 8 mmol/L (5-15); CALCIUM 8.5 mg/dL (8.5-10.1); CHLORIDE 110 mmol/L (98-107); CREATININE 0.52 mg/dL (0.7-1.3)
[2018-03-15 08:00] VITALS: BP 85/43
[2018-03-15] MEDS: INSULIN REGULAR, HUMAN 100 UNITS/ML, 3ML HIGH DOSE SS SQ-INSULIN SCH (09:00)
[2018-03-15] MEDS: NICOTINE 14MG/24 HR PATCH.TD24 TD SCH (12:56)
[2018-03-15 13:07] VITALS: BP 92/61
[2018-03-15] MEDS: OXYcodone IR 5MG TABLET PO PRN ×2 (14:41→21:34)
[2018-03-15] MEDS: ACETAMINOPHEN 500 MG TABLET PO SCH ×2 (14:41→21:34)
[2018-03-15] MEDS: POLYETHYLENE GLYCOL 17 GM PACKET PO SCH (14:42)
[2018-03-15] MEDS ORDERED: AMINO ACID 10% IV SCH (17:00)
[2018-03-15] MEDS ORDERED: [UNRECOGNIZED DRUG - OTHER] IV SCH (17:00)
[2018-03-15] MEDS ORDERED: DEXTROSE 70% IV SCH (17:00)
[2018-03-15] MEDS ORDERED: FAT EMULSIONS IV SCH (17:00)
[2018-03-15] MEDS: FILTER, DISP 1.2 MICRON FOR TPN/PVN IV PRN (17:01)
[2018-03-15] MEDS: IBUPROFEN 800 MG TABLET PO SCH ×2 (17:11→21:34)
[2018-03-15] MEDS: OMEPRAZOLE 20 MG CAPSULE.DR PO SCH (17:43)
[2018-03-15 20:48] VITALS: BP 94/62
[2018-03-16] MEDS: OXYcodone IR 5MG TABLET PO PRN ×6 (01:26→21:50)
[2018-03-16 01:35] VITALS: BP 91/59
[2018-03-16] MEDS: ACETAMINOPHEN 500 MG TABLET PO SCH ×4 (04:41→23:02)
[2018-03-16] MEDS: PIPERACILLIN/TAZO/PMX 3.375GM 50 ML IV SCH ×4 (04:41→23:02)
[2018-03-16] MEDS: HEPARIN 5,000 UNITS/ML, 1ML SQ SCH ×3 (04:42→20:23)
[2018-03-16] MEDS ORDERED: IBUPROFEN 800 MG TABLET ONE (05:20)
[2018-03-16] MEDS: IBUPROFEN 800 MG TABLET PO SCH ×3 (05:25→20:23)
[2018-03-16 05:32] LABS: CHLORIDE 109 mmol/L (98-107)
[2018-03-16 05:42] LABS: ALANINE AMINOTRANSFERASE 42 U/L (12-78); ALBUMIN 1.7 g/dL (3.4-5.0); ALKALINE PHOSPHATASE 148 U/L (45-117); ANION GAP 9 mmol/L (5-15); BILIRUBIN,TOTAL 0.3 mg/dL (0.2-1.0); CALCIUM 8.2 mg/dL (8.5-10.1); CREATININE 0.49 mg/dL (0.7-1.3); PREALBUMIN 13.6 mg/dL (20.0-40.0); TOTAL PROTEIN 5.8 g/dL (6.4-8.2); TRIGLYCERIDES 55 mg/dL (50-200)
[2018-03-16] MEDS: HYDROmorphone 2 MG/ML, 1ML IV PRN ×3 (06:29→18:34)
[2018-03-16] MEDS: INSULIN REGULAR, HUMAN 100 UNITS/ML, 3ML HIGH DOSE SS SQ-INSULIN SCH (08:13)
[2018-03-16 09:07] VITALS: BP 92/61
[2018-03-16] MEDS: POLYETHYLENE GLYCOL 17 GM PACKET PO SCH (09:34)
[2018-03-16] MEDS: OMEPRAZOLE 20 MG CAPSULE.DR PO SCH (09:34)
[2018-03-16] MEDS: NICOTINE 14MG/24 HR PATCH.TD24 TD SCH ×2 (10:54→14:58)
[2018-03-16] MEDS ORDERED: ERGOCALCIFEROL 50,000 UNIT CAPSULE PO SCH (11:00)
[2018-03-16 14:30] VITALS: BP 96/62
[2018-03-16] MEDS: FILTER, DISP 1.2 MICRON FOR TPN/PVN IV PRN (16:44)
[2018-03-16] MEDS ORDERED: FAT EMULSIONS IV SCH (17:00)
[2018-03-16] MEDS ORDERED: AMINO ACID 10% IV SCH (17:00)
[2018-03-16] MEDS ORDERED: DEXTROSE 70% IV SCH (17:00)
[2018-03-16] MEDS ORDERED: [UNRECOGNIZED DRUG - OTHER] IV SCH (17:00)
[2018-03-16 19:30] VITALS: BP 90/57
[2018-03-17] MEDS: HYDROmorphone 2 MG/ML, 1ML IV PRN ×4 (00:47→19:14)
[2018-03-17] MEDS: OXYcodone IR 5MG TABLET PO PRN ×6 (01:48→22:03)
[2018-03-17 01:58] VITALS: BP 98/63
[2018-03-17] MEDS: IBUPROFEN 800 MG TABLET PO SCH ×3 (04:58→20:08)
[2018-03-17] MEDS: HEPARIN 5,000 UNITS/ML, 1ML SQ SCH ×3 (04:58→20:08)
[2018-03-17] MEDS: ACETAMINOPHEN 500 MG TABLET PO SCH ×4 (04:58→23:06)
[2018-03-17] MEDS: PIPERACILLIN/TAZO/PMX 3.375GM 50 ML IV SCH ×3 (04:58→17:29)
[2018-03-17 05:19] LABS: ANION GAP 5 mmol/L (5-15); CALCIUM 7.6 mg/dL (8.5-10.1); CHLORIDE 109 mmol/L (98-107); CREATININE 0.49 mg/dL (0.7-1.3)
[2018-03-17 07:50] VITALS: BP 93/59
[2018-03-17] MEDS: POLYETHYLENE GLYCOL 17 GM PACKET PO SCH (08:30)
[2018-03-17] MEDS: INSULIN REGULAR, HUMAN 100 UNITS/ML, 3ML HIGH DOSE SS SQ-INSULIN SCH (08:30)
[2018-03-17] MEDS: OMEPRAZOLE 20 MG CAPSULE.DR PO SCH (08:30)
[2018-03-17] MEDS: NICOTINE 14MG/24 HR PATCH.TD24 TD SCH (14:10)
[2018-03-17 14:15] VITALS: BP 93/59
[2018-03-17] MEDS ORDERED: [UNRECOGNIZED DRUG - OTHER] IV SCH ×2 (17:00→19:00)
[2018-03-17] MEDS ORDERED: AMINO ACID 10% IV SCH ×2 (17:00→19:00)
[2018-03-17] MEDS ORDERED: DEXTROSE 70% IV SCH ×2 (17:00→19:00)
[2018-03-17] MEDS ORDERED: FAT EMULSIONS IV SCH ×2 (17:00→19:00)
[2018-03-17] MEDS: FILTER, DISP 1.2 MICRON FOR TPN/PVN IV PRN (17:49)
[2018-03-17 20:18] VITALS: BP 94/53
[2018-03-18] MEDS: HYDROmorphone 2 MG/ML, 1ML IV PRN ×4 (00:57→20:59)
[2018-03-18] MEDS: OXYcodone IR 5MG TABLET PO PRN ×5 (02:18→20:58)
[2018-03-18 03:16] VITALS: BP 98/56
[2018-03-18] MEDS: HEPARIN 5,000 UNITS/ML, 1ML SQ SCH ×3 (04:33→20:58)
[2018-03-18] MEDS: ACETAMINOPHEN 500 MG TABLET PO SCH ×4 (04:33→23:03)
[2018-03-18] MEDS: IBUPROFEN 800 MG TABLET PO SCH ×3 (04:33→20:58)
[2018-03-18 06:38] LABS: ANION GAP 6 mmol/L (5-15); CALCIUM 8.2 mg/dL (8.5-10.1); CHLORIDE 107 mmol/L (98-107)
[2018-03-18 06:40] LABS: CREATININE 0.52 mg/dL (0.7-1.3)
[2018-03-18 07:19] VITALS: BP 100/65
[2018-03-18] MEDS: INSULIN REGULAR, HUMAN 100 UNITS/ML, 3ML HIGH DOSE SS SQ-INSULIN SCH (08:40)
[2018-03-18] MEDS: OMEPRAZOLE 20 MG CAPSULE.DR PO SCH (08:47)
[2018-03-18] MEDS: POLYETHYLENE GLYCOL 17 GM PACKET PO SCH (08:47)
[2018-03-18 14:00] VITALS: BP 99/64
[2018-03-18] MEDS: NICOTINE 14MG/24 HR PATCH.TD24 TD SCH (14:36)
[2018-03-18 21:14] VITALS: BP 102/68
[2018-03-19] MEDS: OXYcodone IR 5MG TABLET PO PRN ×4 (01:11→13:52)
[2018-03-19 01:51] VITALS: BP 91/46
[2018-03-19] MEDS: HYDROmorphone 2 MG/ML, 1ML IV PRN ×2 (03:00→09:02)
[2018-03-19] MEDS: HEPARIN 5,000 UNITS/ML, 1ML SQ SCH ×2 (05:16→13:00)
[2018-03-19] MEDS: ACETAMINOPHEN 500 MG TABLET PO SCH ×2 (05:16→12:08)
[2018-03-19] MEDS: IBUPROFEN 800 MG TABLET PO SCH ×2 (05:16→13:00)
[2018-03-19 08:00] VITALS: BP 105/57
[2018-03-19] MEDS: OMEPRAZOLE 20 MG CAPSULE.DR PO SCH (08:08)
[2018-03-19] MEDS: POLYETHYLENE GLYCOL 17 GM PACKET PO SCH (08:08)
[2018-03-19] MEDS ORDERED: OMEP-110 PO (10:11)
[2018-03-19] MEDS ORDERED: OXYC-307 PO (10:11)
[2018-03-19] MEDS ORDERED: ERGO500017 PO (10:11)
[2018-03-19] MEDS ORDERED: DOCU-131 PO (10:11)
[2018-03-19] MEDS ORDERED: IBUP-1223 PO (10:11)
[2018-03-19] MEDS ORDERED: POLY17PO5 PO (10:11)
[2018-03-19 13:46] VITALS: BP 108/72
== END 2018-03-19 15:00 | disposition home or self-care (01) | DRG 329 ==
LOC: ED 12:40 → EDIP 12:41 → ED 13:01 → 4NOR 13:35 → 5SO 03-05 09:25 → 4WST 03-08 12:17 → 4NOR 03-14 16:53 → DCLOUNGE 03-19 14:24
PROVIDERS: ADMIT Hospitalist; ATTEND Hospitalist
PROC: 02HV33Z Insertion of Infusion Device into Superior Vena Cava, Percutaneous Approach (ICD-10-PCS; 2018-03-03)
PROC: B548ZZA Ultrasonography of Superior Vena Cava, Guidance (ICD-10-PCS; 2018-03-03)
PROC: 0DNW0ZZ Release Peritoneum, Open Approach (ICD-10-PCS; 2018-03-04)
PROC: 0D9670Z Drainage of Stomach with Drainage Device, Via Natural or Artificial Opening (ICD-10-PCS; 2018-03-04)
PROC: 0D1B0ZH Bypass Ileum to Cecum, Open Approach (ICD-10-PCS; principal; 2018-03-04 16:30)
DX: K56.601 Complete intestinal obstruction, unspecified as to cause (principal); E43 Unspecified severe protein-calorie malnutrition; J96.01 Acute respiratory failure with hypoxia; J69.0 Pneumonitis due to inhalation of food and vomit; E87.2 Acidosis; K50.012 Crohn's disease of small intestine with intestinal obstruction; E55.9 Vitamin D deficiency, unspecified; F41.9 Anxiety disorder, unspecified; K43.2 Incisional hernia without obstruction or gangrene; R00.0 Tachycardia, unspecified; R60.0 Localized edema; R73.9 Hyperglycemia, unspecified; K66.0 Peritoneal adhesions (postprocedural) (postinfection); R94.31 Abnormal electrocardiogram [ECG] [EKG]; F17.210 Nicotine dependence, cigarettes, uncomplicated; F12.90 Cannabis use, unspecified, uncomplicated; Z68.20 Body mass index [BMI] 20.0-20.9, adult; Z90.49 Acquired absence of other specified parts of digestive tract; Z93.3 Colostomy status
CPT/HCPCS: 36415; 36569; 71045; 71275; 74018; 74177; 74250; 76937; 77001; 80048; 80053; 81003; 82040; 82306; 82607; 82962; 83036; 83605; 83735; 84100; 84134; 84145; 84439; 84443; 84478; 84484; 85025; 86480; 86704; 86705; 86706; 86708; 86709; 86803; 87040; 87070; 87077; 87186; 87205; 87340; 93005; 93306; 99285; J0610; J1100; J1170; J1644; J1815; J2250; J2405; J2543; J2704; J3010; J3475; J3480; Q0162; Q9967; C1751; C1765; J0330; J2270; J3420; J7030; J7120; J7121; S0074